=== PATIENT | female | born 1940 | race Hispanic/Latino ===

== ENCOUNTER 2019-03-17 13:50 | Emergency (ER) | payer MEDICARE ==
[2019-03-17 14:07] VITALS: BP 147/77
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
== END 2019-03-17 18:15 | disposition home or self-care (01) ==
LOC: ED 13:50
DX: S61.411A Laceration without foreign body of right hand, initial encounter (principal); I10 Essential (primary) hypertension; J44.9 Chronic obstructive pulmonary disease, unspecified; F03.90 Unspecified dementia, unspecified severity, without behavioral disturbance, psychotic disturbance, mood disturbance, and anxiety; Z87.891 Personal history of nicotine dependence; Z79.899 Other long term (current) drug therapy; Z88.2 Allergy status to sulfonamides; Z88.8 Allergy status to other drugs, medicaments and biological substances; Z91.041 Radiographic dye allergy status; Y04.8XXA Assault by other bodily force, initial encounter; Y93.89 Activity, other specified; Y92.128 Other place in nursing home as the place of occurrence of the external cause; Y99.8 Other external cause status
CPT/HCPCS: 99283

== ENCOUNTER 2019-11-06 08:51 | Emergency (ER) | payer MEDICARE ==
[~2019-11-06 08:51] MED LIST: EPINEPHrine 1:10,000 1 MG/10 ML SYRINGE ONE; IPRATROPIUM 0.02% NEBU 2.5 ML IH ONE; SODIUM BICARB 8.4% 50 MEQ/50 ML VIAL IV ONE
--- NOTE | 2019-11-06 09:59 | Emergency Department Report ---
ED CPR HPI - General Chief Complaint: Cardiac Arrest/CPR Stated Complaint: CARDIAC ARREST Time Seen by Provider: 11/06/19 09:03 Source: EMS Mode of arrival: Stretcher Limitations: No Limitations - History of Present Illness Initial Comments: 78-year-old female presents to the emergency department via EMS from [facility] in cardiac arrest. The patient's last known well time was at about 730 this morning. EMS was at [place] at around 8:30 AM. The patient was given a Ignacio airway. ACLS protocol was started including chest comp ressions and the patient had 2 rounds of epinephrine prior to arrival at our facility. She was in both asystole and PEA. The patient arrives to our emergency department still pulseless and in PEA. Records show that the patient has a history of COPD, dementia, anorexia, anemia. - Related Data Home Medications Medication Instructions Recorded Confirmed Last Taken ALBUTEROL NEB's [Proventil 0.083% 2.5 mg INHALATION Q6H PRN 11/05/14 11/05/14 Unknown NEBS] Acetaminophen [Acetaminophen TAB] 325 mg PO TID 11/05/14 11/05/14 11/04/14 Ipratropium/Albuterol Sulfate 1 ampul INHALATION Q6H PRN 11/05/14 11/05/14 Unknown [DUONEB *Not for PRN Use*] Levothyroxine [Synthroid] 25 mcg PO DAILY 11/05/14 11/05/14 11/04/14 donepeziL [Aricept] 10 mg PO QHS 11/05/14 11/05/14 11/04/14 Previous Rx's Medication Instructions Recorded Last Taken Type DOXYCYCLINE Hyclate [Vibramycin 100 mg PO BID #20 capsule 11/11/14 Unknown Rx CAP] Pantoprazole [Protonix TAB] 40 mg PO BID #60 tablet 11/11/14 Unknown Rx Allergies Allergy/AdvReac Type Severity Reaction Status Date / Time Iodinated Contrast Media Allergy Rash Verified 11/05/14 06:55 [Iodinated Contrast Media - IV Dye] iodine Allergy Rash Verified 11/05/14 06:55 Sulfa (Sulfonamide Allergy Rash Verified 11/05/14 06:55 Antibiotics) ED Review of Systems ROS: Stated complaint: CARDIAC ARREST Other details as noted in HPI Comment: Unobtainable due to pts medical conditions ED Past Medical Hx - Past Medical History Hx Hypertension: Yes Hx Heart Attack/AMI: No Hx Liver Disease: No Hx Renal Disease: No Hx Seizures: No Hx COPD: Yes Hx Dementia: Yes Additional medical history: Alzheimers, hypothyroidism - Surgical History Additional Surgical History: unknown - Social History Smoking Status: Former Smoker - Medications Home Medications: Home Medications Medication Instructions Recorded Confirmed Last Taken Type ALBUTEROL NEB's [Proventil 0.083% 2.5 mg INHALATION Q6H PRN 11/05/14 11/05/14 Unknown History NEBS] Acetaminophen [Acetaminophen TAB] 325 mg PO TID 11/05/14 11/05/14 11/04/14 History Ipratropium/Albuterol Sulfate 1 ampul INHALATION Q6H PRN 11/05/14 11/05/14 Unknown History [DUONEB *Not for PRN Use*] Levothyroxine [Synthroid] 25 mcg PO DAILY 11/05/14 11/05/14 11/04/14 History donepeziL [Aricept] 10 mg PO QHS 11/05/14 11/05/14 11/04/14 History DOXYCYCLINE Hyclate [Vibramycin 100 mg PO BID #20 capsule 11/11/14 Unknown Rx CAP] Pantoprazole [Protonix TAB] 40 mg PO BID #60 tablet 11/11/14 Unknown Rx ED Physical Exam - General Limitations: No Limitations - Other Other exam information: GENERAL: Patient is ill-appearing and unresponsive. HENT: Normocephalic. Atraumatic. EYES: Pupils are fixed and dilated. NECK: Supple. Trachea appears midline. CHEST/LUNGS: There are no spontaneous respirations. HEART/CARDIOVASCULAR: There are no spontaneous heart sounds. ABDOMEN: Abdomen is soft. There is no abdominal distention. SKIN: Skin is cool but dry. NEURO: Unresponsive. Does not withdraw to painful stimuli. Does not follow any commands. MUSCULOSKELETAL: There is no obvious deformity. There is no evidence of acute injury. No palpable femoral or radial pulses. ED Medical Decision Making - Medical Decision Making This patient presented to the emergency department in cardiac arrest from her [place] [facility] facility. EMS started ACLS protocol which included 2 rounds of epi, chest compressions and a Ignacio airway. She presents to our emergency department still pulseless and in PEA. She was moved over to the [facility] where we continued chest compressions, bag valve ventilation and ACLS protocol. 3 rounds of ACLS were done including epinephrine, sodium bicarbonate, but there was no return of spontaneous circulation. Overall the patient has been pulseless and unresponsive for greater than 30 minutes. Time of was called at 9:02 AM. I spoke with the patient's grandson and notified him of the patient's expiration. Critical Care Time: Yes Critical care time in (mins) excluding proc time.: 20 Critical care attestation.: If time is entered above; I have spent that time in minutes in the direct care of this critically ill patient, excluding procedure time. Critical care time spent on this patient during her initial evaluation, supervision of ACLS protocol and discussion with the patient's family. Critical Care Time: 20 minutes ED Disposition Clinical Impression: Cardiac arrest, Cardiopulmonary arrest Disposition: DC-20 Is pt being admited?: No Time of Disposition: 14:34
== END 2019-11-06 13:00 ==
LOC: ED 08:51
DX: I46.9 Cardiac arrest, cause unspecified (principal); I10 Essential (primary) hypertension; I25.2 Old myocardial infarction; J44.9 Chronic obstructive pulmonary disease, unspecified; F03.90 Unspecified dementia, unspecified severity, without behavioral disturbance, psychotic disturbance, mood disturbance, and anxiety; E03.9 Hypothyroidism, unspecified; Z87.891 Personal history of nicotine dependence; Z79.899 Other long term (current) drug therapy; Z88.2 Allergy status to sulfonamides; Z88.6 Allergy status to analgesic agent; Z91.041 Radiographic dye allergy status
CPT/HCPCS: 82962; 92950; 99285; J0171